=== PATIENT | female | born 1990 | race Caucasian/White ===

== ENCOUNTER → 2023-10-12 08:37 | Outpatient (REF) | payer BC, SELFPAY | LOC: PNTC 08:37 | PROVIDERS: ATTENDING PHYSICIAN Obstetrics & Gynecology | DX: O48.0 Post-term pregnancy (principal) | CPT/HCPCS: 59025 ==

== ENCOUNTER 2023-10-15 09:47 | Observation (INO) | payer BC, SELFPAY ==
[2023-10-15 09:57] VITALS: BP 114/67; BMI 34.8
== END 2023-10-15 10:54 | disposition home or self-care (01) ==
LOC: LDRP 09:47
PROVIDERS: ADMITTING PHYSICIAN Obstetrics & Gynecology; FAMILY PHYSICIAN Family Medicine; REFERRING PHYSICIAN Obstetrics & Gynecology
DX: O48.0 Post-term pregnancy (principal); Z3A.40 40 weeks gestation of pregnancy
CPT/HCPCS: 59025; 36415; 86850; 86900; 86901; G0378

== ENCOUNTER 2023-10-17 19:26 | Inpatient (IN) | payer BC, SELFPAY ==
[2023-10-17 19:39] VITALS: BP 97/56; BMI 34.8
[2023-10-17] MEDS: CYTOTEC 50 MICROGRAM VAG (20:02)
[2023-10-17 20:14] LABS: % Basophils 0.4 % (0-2); % Eosinophils 0.5 % (0-6); % Immature Granulocytes 0.1 % (0-0.5); % Monocytes 8.1 % (1.7-9.3); % Neutrophils 66.9 % (42.2-75.2); Absolute Lymphocytes 1.9 10^3/uL (1.2-3.4); Absolute Monocytes 0.6 10^3/uL (0.1-0.6); Absolute Neutrophils 5.2 10^3/uL (1.4-6.5); Hematocrit 36.1 % (37.0-47.0); Hemoglobin 12.6 g/dL (12.0-16.0); Mean Corp Hgb Conc. 34.9 g/dL (33.0-37.0); Mean Corpuscular Hgb 31.4 pg (27.0-31.0); Nucleated Red Blood Cells % 0 %; Platelet Count 151 10^3/uL (130-400); Red Blood Cell Count 4.01 10^6/uL (4.20-5.40); Red Cell Dist. Width 13.6 % (11.5-14.5); White Blood Cell Count 7.8 10^3/uL (4.8-10.8)
[2023-10-17] MEDS: FENTANYL/BUPIVACAINE 100 EPIDURAL (22:33)
[2023-10-17] MEDS: SUBLIMAZE 100 MCG EPIDURAL (22:33)
[2023-10-17] MEDS: LR 1000 IV (22:44)
[2023-10-18] MEDS: PITOCIN 30 UNITS/NSS 500 ML IV (02:04)
[2023-10-18] MEDS: TYLENOL 650 MG PO ×2 (13:06→17:56)
[2023-10-18] MEDS: MOTRIN 600 MG PO ×2 (13:06→21:20)
[2023-10-19 05:41] LABS: Hematocrit 38.6 % (37.0-47.0); Hemoglobin 13.2 g/dL (12.0-16.0)
[2023-10-19] MEDS: MOTRIN 600 MG PO (09:33)
[2023-10-19] MEDS: M-M-R II 0.5 ML SC (10:59)
[2023-10-21 14:01] LABS: Syphilis/T. pallidum Ab Reflex Negative (Negative)
== END 2023-10-19 11:45 | disposition home or self-care (01) | DRG 807 ==
LOC: LDRP 19:26
PROVIDERS: Obstetrics & Gynecology; ADMITTING PHYSICIAN Obstetrics & Gynecology
PROC: 3E0P7VZ Introduction of Hormone into Female Reproductive, Via Natural or Artificial Opening (ICD-10-PCS; 2023-10-17)
PROC: 10907ZC Drainage of Amniotic Fluid, Therapeutic from Products of Conception, Via Natural or Artificial Opening (ICD-10-PCS; 2023-10-17)
PROC: 6A550ZT Pheresis of Cord Blood Stem Cells, Single (ICD-10-PCS; 2023-10-18)
PROC: 10E0XZZ Delivery of Products of Conception, External Approach (ICD-10-PCS; 2023-10-18)
PROC: 0HQ9XZZ Repair Perineum Skin, External Approach (ICD-10-PCS; 2023-10-18)
PROC: 3E0134Z Introduction of Serum, Toxoid and Vaccine into Subcutaneous Tissue, Percutaneous Approach (ICD-10-PCS; 2023-10-19)
DX: O48.0 Post-term pregnancy (principal); Z37.0 Single live birth; Z3A.41 41 weeks gestation of pregnancy; O70.0 First degree perineal laceration during delivery; Z23 Encounter for immunization; O69.81X0 Labor and delivery complicated by cord around neck, without compression, not applicable or unspecified
CPT/HCPCS: 88307; 85014; 85018; 85025; 86780; 86850; 86900; 86901; 90707